=== PATIENT | female | born 1965 | race Two or more races ===

== ENCOUNTER 2021-05-10 04:26 | Day surgery (SDC) | payer OTHER ==
[2021-05-09 11:07] VITALS: BMI 26.4
[2021-05-10] MEDS ORDERED: LIDOCAINE 1%/EPI 1:100000 (20 ML MULTI DOSE VIAL) ONE (12:10)
[2021-05-10] MEDS ORDERED: BUPIVACAINE HCL/PF 0.5% (5MG/ML) 10 ML VIAL ONE (12:11)
[2021-05-10] MEDS ORDERED: MIDAZOLAM HCL 2 MG/2 ML SINGLE DOSE VIAL ONE (12:16)
[2021-05-10] MEDS ORDERED: ONDANSETRON 4 MG/2 ML VIAL IVPUSH PRN ×2 (12:22→13:27)
[2021-05-10] MEDS ORDERED: oxyCODONE HCL 5 MG TABLET PO PRN (12:22)
[2021-05-10] MEDS ORDERED: PROPOFOL 20 ML ONE (12:38)
[2021-05-10] MEDS ORDERED: LIDOCAINE 1%/EPI 1:100000 (20 ML MULTI DOSE VIAL) IJ ONE (12:43)
[2021-05-10] MEDS ORDERED: BUPIVACAINE HCL/PF 0.5% (5 MG/ML) 30 ML VIAL IJ ONE (12:43)
[2021-05-10 16:10] VITALS: BP 134/68; PULSE 78; TEMP 97.9
== END 2021-05-10 15:45 | disposition home or self-care (01) ==
LOC: JASU-SURG 04:26
PROVIDERS: ATTEND Orthopaedic Surgery
PROC: 0SBD4ZZ Excision of Left Knee Joint, Percutaneous Endoscopic Approach (ICD-10-PCS; 2021-05-10)
PROC: 0SBD4ZZ Excision of Left Knee Joint, Percutaneous Endoscopic Approach (ICD-10-PCS; principal; 2021-05-10 12:45)
DX: S83.232A Complex tear of medial meniscus, current injury, left knee, initial encounter (principal); S83.282A Other tear of lateral meniscus, current injury, left knee, initial encounter; X58.XXXA Exposure to other specified factors, initial encounter; Y93.9 Activity, unspecified; Y92.9 Unspecified place or not applicable; Y99.9 Unspecified external cause status
CPT/HCPCS: 94760